=== PATIENT | male | born 1940 | race Caucasian/White ===

== ENCOUNTER 2020-08-28 06:57 | Day surgery (SDC) | payer MEDICARE, BC ==
[~2020-08-28] VITALS: Ht 172.7 cm; Wt 76.2 kg
[~2020-08-28 06:57] MED LIST: ALTACE10 MG PO; BLOOD PRESSURE; HYDROCODON-ACE1 EAC7 PO; NORVASC5 MG PO
[2020-08-28 07:30] LABS: CALC OSMOLALITY 279 mosm/kg (275-300); CALCIUM 8.5 mg/dL (8.5-10.1); CARBON DIOXIDE 25.8 mmol/L (21.0-32.0); CHLORIDE - SERUM 106 mmol/L (98-107); CREATININE - SERUM 0.9 mg/dL (0.6-1.3); GLUCOSE 111 mg/dL (74-106); POTASSIUM - SERUM 3.9 mmol/L (3.5-5.1); SODIUM 139 mmol/L (136-145); UREA NITROGEN 16 mg/dL (7-18); eGFR NON AFRICAN AMERICAN 86 mL/min (90-120)
[2020-08-28] MEDS ORDERED: PRISTIQ50 MG PO (08:12)
[2020-08-28 08:17] VITALS: BP 130/85; Ht 172.7 cm; Wt 76.2 kg
[2020-08-28 08:31] LABS: HEMATOCRIT 50.5 % (42.0-54.0); HEMOGLOBIN 17.4 g/dL (13.5-17.5); LYMPHOCYTES 18.3 % (15-50); MCH 31.1 pg (26.0-34.0); MCHC 34.5 g/dL (31.0-37.0); MCV 90.3 fL (80.0-100.0); MEAN PLATELET VOLUME 8.5 fL (7.4-10.4); NEUTROPHILS 71.9 % (40-80); PLATELET COUNT 212 10x3/uL (130-400); RBC 5.59 10x6/uL (4.20-6.10); RDW 13.9 % (11.5-14.5); WBC 6.8 10x3/uL (4.8-10.8)
[2020-08-28] MEDS ORDERED: HYDROCODON-ACE1 EA10 PO (10:19)
--- NOTE | 2020-08-28 12:41 | NUR ---
1155 VOIDED. 1210 IV REMOVED 1220 D/C HOME
--- NOTE | 2020-08-28 13:07 | OP ---
PATIENT NAME: YOLANDA DELGADILLO MEDICAL RECORD: [id number] :40 LOCATION:D.OPS ADMISSION DATE: SURGEON: EDWARD TOVAR MD DATE OF OPERATION: 08/28/2020 PREOPERATIVE DIAGNOSES: 1. Gallstones. 2. Hypertension. 3. Thoracic aortic aneurysm. POSTOPERATIVE DIAGNOSES: 1. Gallstones. 2. Hypertension. 3. Thoracic aortic aneurysm. PROCEDURE: Laparoscopic cholecystectomy. SURGEON: Edward Tovar MD REPORT OF PROCEDURE: The patient's abdomen was prepped and draped in sterile fashion. A cutdown was made on the superior aspect of the umbilicus. 0 Vicryls were placed in the fascia bilaterally and the fascia was incised with a 15-blade. I then bluntly entered the peritoneal cavity and placed a 12-mm Sher port. Under direct visualization, a 5-mm trocar was placed in the epigastrium and 2 more 5-mm trocars were placed in the right subcostal region. The gallbladder was grasped and elevated. There was noted to be some inflammatory changes present and what appeared to be some [id number] inflammation of the gallbladder. There were some fatty adhesions to the liver wall as well and this was taken down using electrocautery. We then dissected out the cystic artery and cystic duct and these were clipped proximally and distally and ligated in standard fashion. The gallbladder was taken off the liver bed using electrocautery and placed into the right upper quadrant. Any bleeding from the liver bed was then treated with electrocautery. We irrigated out the right upper quadrant and assured there was no sign of any bleeding or bile leakage. At this point, the ports and insufflation were then removed and the gallbladder was taken out through the umbilicus. The umbilical fascia was closed with interrupted 0 Vicryls times 3. The wounds were irrigated out with normal saline and infused with 10 mL of 0.25% Marcaine with epinephrine. Skin incisions were closed with subcutaneous 5-0 Monocryl and dressed appropriately. COMPLICATIONS: None. CONDITION: Stable. ANESTHESIA: General endotracheal and local. BLOOD LOSS: Minimal. TRANSINT:[id number] Voice Confirmation ID: [id number] DOCUMENT ID: [id number] OPERATIVE REPORT [id number] LEONAYOLANDA EDWARD GORDON MD at 1307 CC: TOBY PARK DO [id number] DICTATION DATE: 08/28/20 1024 CERTIFIED VETERINARY TECHNICIAN: 08/28/20 1049 [facility] 08/28/20 [facility] [address] [place] [address]
== END 2020-08-28 12:20 | disposition home or self-care (01) ==
LOC: D.OPS 06:57
PROVIDERS: ATTEND Surgery
DX: K80.20 Calculus of gallbladder without cholecystitis without obstruction (principal); I10 Essential (primary) hypertension; I71.2 Thoracic aortic aneurysm, without rupture